=== PATIENT | female | born 1990 | race Caucasian/White ===

== ENCOUNTER 2020-12-14 09:05 | Emergency (ER) | payer MEDICAID ==
[~2020-12-14] VITALS: Ht 152.4 cm; Wt 67.0 kg
[2020-12-14 10:07] VITALS: BP 100/64
== END 2020-12-14 10:12 | disposition home or self-care (01) ==
LOC: ER 09:06
DX: Z00.8 Encounter for other general examination (principal); R56.9 Unspecified convulsions; Z86.69 Personal history of other diseases of the nervous system and sense organs
CPT/HCPCS: 99281